=== PATIENT | female | born 1945 | race Caucasian/White ===

== ENCOUNTER 2017-05-06 17:45 | Emergency (ER) | payer OTHER ==
[~2017-05-06] VITALS: Ht 165.1 cm; Wt 95.3 kg
[~2017-05-06 17:45] MED LIST: LEVOTHYROXINE 0.15MG PO; LISINOPRIL10 MG PO; MOBIC7.5 MG PO; PREDNISONE 20 M20 MG PO
[2017-05-06] MEDS ORDERED: AMBIEN 5 MG TABL5 M1 PO (17:58)
[2017-05-06] MEDS ORDERED: FORTAMET500 MG PO (17:58)
[2017-05-06] MEDS ORDERED: CALCIUM 600 +1 EAC1 PO (17:58)
[2017-05-06] MEDS ORDERED: ASPIR 8181 MG PO (17:58)
[2017-05-06] MEDS ORDERED: ZOCOR20 MG PO (17:58)
[2017-05-06] MEDS ORDERED: SERTRALINE HCL50 MG PO (17:58)
[2017-05-06] MEDS ORDERED: FOSAMAX 70 MG T70 MG PO (17:58)
[2017-05-06] MEDS ORDERED: REQUIP0.5 MG PO (17:59)
[2017-05-06] MEDS ORDERED: LOSARTAN-HCTZ1 EAC2 PO (17:59)
[2017-05-06 18:14] LABS: ABSOLUTE BASOPHILS 0.1 thou/uL (0.0-0.2); ABSOLUTE EOSINOPHILS 0.1 thou/uL (0.0-0.7); ABSOLUTE LYMPHOCYTES 2.7 thou/uL (0.8-5.3); ABSOLUTE MONOCYTES 0.7 thou/uL (0.0-1.2); ABSOLUTE NEUTROPHILS 4.4 thou/uL (1.6-8.1); BASOPHILS 0.7 %; EOSINOPHILS 1.3 %; HEMATOCRIT 37.4 % (37.0-47.0); HEMOGLOBIN 12.5 gm/dL (12.0-15.0); LYMPHOCYTES 33.6 %; MCH 27.8 pg (26.0-34.0); MCHC 33.4 g/dL (28.0-37.0); MCV 83.1 fL (80.0-100.0); MONOCYTES 8.6 %; MPV 8.9 fl. (7.2-11.1); NUCLEATED RBCS 0 /100WBC; PLATELET COUNT* 241 thou/uL (150-400); POLYS 55.8 %; RBC 4.51 mil/uL (4.20-5.00); RDW-CV 14.6 % (10.5-14.5); WBC 7.9 thou/uL (4.0-11.0)
[2017-05-06 18:19] LABS: ANION GAP 10 mmol/L (7-16); BUN 27 mg/dL (7-18); CALCIUM 9.3 mg/dL (8.5-10.1); CHLORIDE 102 mmol/L (98-107); CO2 28 mmol/L (21-32); CREATININE 1.1 mg/dL (0.6-1.3); GLUCOSE 132 mg/dL (70-99); POTASSIUM 3.5 mmol/L (3.5-5.1); SODIUM 140 mmol/L (136-145)
[2017-05-06 18:21] LABS: APTT 27.1 Seconds (25.0-31.3); PROTIME 9.9 Seconds (9.20-11.50)
[2017-05-06 18:29] LABS: INFLUENZA A ANTIGEN None Detected (None Detect); INFLUENZA B ANTIGEN None Detected (None Detect)
[2017-05-06 18:38] LABS: ALBUMIN 3.8 g/dL (3.4-5.0); ALKALINE PHOSPHATASE 71 U/L (46-116); CK-MB MASS < 0.5 ng/mL (<0.5-3.6); LIPASE 130 U/L (73-393); MAGNESIUM 1.5 mg/dL (1.8-2.4); NT-PRO BRAIN NAT PEPTIDE 135 pg/mL (<300); SGOT 20 U/L (15-37); SGPT 24 U/L (30-65); TOTAL BILIRUBIN 0.4 mg/dL (<0.1-1.0); TOTAL PROTEIN 8.2 g/dL (6.4-8.2); TROPONIN-I LEVEL <0.06 ng/mL (<0.06)
[2017-05-06] MEDS ORDERED: OSELB75 PO (18:43)
[2017-05-06] MEDS ORDERED: PROMETH-CODEIN 65 ML PO (18:53)
[2017-05-06 18:58] VITALS: BP 124/82
--- NOTE | 2017-05-07 11:23 | EKG ---
[place] [address] ELECTROCARDIOGRAM REPORT Name: BAYLEE LEE Room: [facility]#: [id number] Admission: 05/06/17 Attend Phys: Discharge: 05/06/17 Date of : 41 Report #: [id number] THIS REPORT FOR: //name// [facility] ED Test Date: 2017-05-06 Test Time: 17:56:11 Pat Name: BAYLEE LEE Department: Room: Gender: F [employer] Manager: : 1945 Requested By: Harrison Blanchard Order Number: [id number] MD: Da Mei Measurements Intervals Buena Rate: 141 P: 176 WV: 63 QRS: -15 QRSD: 85 T: 42 QT: 323 QTc: 495 Interpretive Statements Sinus or ectopic atrial tachycardia nonspecific st changes No previous ECG available for comparison Electronically Signed On 05-07-2017 11:23:25 HEALTH SUPPORT SPECIALIST by Da Mei [email or web address] <ELECTRONICALLY SIGNED> By: Da Mei MD, [facility] 05/07/17 1123 1756 1756 Da Mei MD, FACC /EPI
== END 2017-05-06 18:59 | disposition home or self-care (01) ==
LOC: M.ERS 17:45
PROVIDERS: Family Medicine
DX: B34.9 Viral infection, unspecified (principal); I10 Essential (primary) hypertension; E11.9 Type 2 diabetes mellitus without complications; Z88.0 Allergy status to penicillin; E07.9 Disorder of thyroid, unspecified

== ENCOUNTER → 2019-10-01 | Outpatient (CLI) | payer OTHER ==
[~2019-10-01] MED LIST changes: +AMBIEN 5 MG TABL5 M1 PO; +ASPIR 8181 MG PO; +CALCIUM 600 +1 EAC1 PO; +FORTAMET500 MG PO; +FOSAMAX 70 MG T70 MG PO; +LOSARTAN-HCTZ1 EAC2 PO; +OSELB75 PO; +PROMETH-CODEIN 65 ML PO; +REQUIP0.5 MG PO; +SERTRALINE HCL50 MG PO; +ZOCOR20 MG PO
== END ==
LOC: M.MRI 09-28 14:30
DX: S83.281A Other tear of lateral meniscus, current injury, right knee, initial encounter (principal); G89.29 Other chronic pain; X58.XXXA Exposure to other specified factors, initial encounter; Y93.89 Activity, other specified; Y92.89 Other specified places as the place of occurrence of the external cause; Y99.8 Other external cause status

== ENCOUNTER 2019-10-20 08:55 | Inpatient (IN) | payer OTHER ==
[~2019-10-20] VITALS: Ht 165.1 cm; Wt 93.0 kg
[~2019-10-20 08:55] MED LIST changes: +GLUMETZA1000 PO; +LEVOXYL125 MCG PO; +REQUIP 1 MG TABL1 M1 PO; -REQUIP0.5 MG PO; +SIMVASTATIN40 MG PO; +ULTRAM 50MG TAB50 MG PO; +ZOLPIDEM TARTRA10 MG PO
[2019-10-20 09:31] LABS: URINE BILIRUBIN NEGATIVE (Negative); URINE BLOOD NEGATIVE (Negative); URINE CLARITY CLEAR; URINE COLOR YELLOW; URINE GLUCOSE-RANDOM NEGATIVE (Negative); URINE KETONES NEGATIVE (Negative); URINE LEUKOCYTES-REFLEX 1+ (Negative); URINE NITRITE-REFLEX NEGATIVE (Negative); URINE PROTEIN NEGATIVE (Negative); URINE SPECIFIC GRAVITY >= 1.030 (1.005-1.030); URINE UROBILINOGEN 0.2 E.U./dl (0.2-1.0)
[2019-10-20 09:43] LABS: CASTS None Seen /LPF (None Seen); CRYSTALS None Seen /LPF (None Seen); MUCUS 4-6 Moderate strn/LPF (None Seen); SQUAMOUS 4-10 Moderate /LPF (0-3); URINE RBC 0-2 Rare /HPF (0-2); URINE WBC-REFLEX 6-15 Few /HPF (0-5)
[2019-10-20 10:40] LABS: HEMATOCRIT 36.6 % (37.0-47.0); HEMOGLOBIN 12.3 gm/dL (12.0-15.0); MCH 28.5 pg (26.0-34.0); MCHC 33.5 g/dL (28.0-37.0); MCV 85.1 fL (80.0-100.0); MPV 8.7 fl. (7.2-11.1); RBC 4.3 mil/uL (4.20-5.00); RDW-CV 14.4 % (10.5-14.5); WBC 10.9 thou/uL (4.0-11.0)
[2019-10-20 10:58] LABS: ALBUMIN 3.8 g/dL (3.4-5.0); CREATININE 0.9 mg/dL (0.6-1.3); POTASSIUM 3.9 mmol/L (3.5-5.1); TOTAL BILIRUBIN 0.5 mg/dL (<0.1-1.0); TOTAL PROTEIN 7.9 g/dL (6.4-8.2)
[2019-10-27 11:00] VITALS: BP 146/69
[2019-10-27 17:15] VITALS: BP 116/61
[2019-10-27 20:00] VITALS: BP 125/62
[2019-10-27 23:29] VITALS: BP 132/68
[2019-10-28 04:00] VITALS: BP 125/71
[2019-10-28 04:41] LABS: HEMATOCRIT 29.9 % (37.0-47.0)
[2019-10-28 07:35] VITALS: BP 146/75
[2019-10-28 20:30] VITALS: BP 113/46
[2019-10-29 04:14] LABS: HEMATOCRIT 28.3 % (37.0-47.0); HEMOGLOBIN 9.5 gm/dL (12.0-15.0)
[2019-10-29 08:00] VITALS: BP 126/61
[2019-10-29 13:45] VITALS: BP 126/61
[2019-10-29 21:00] VITALS: BP 154/67
[2019-10-30 08:00] VITALS: BP 141/69
[2019-10-30 08:41] VITALS: BP 141/69
[2019-10-30] MEDS ORDERED: XARELTO10 MG PO (11:54)
[2019-10-30] MEDS ORDERED: PERCOCET 5-3251 EACH PO (11:54)
--- NOTE | 2019-11-03 08:58 | OP ---
[address] [address] OPERATIVE REPORT Name: BAYLEE LEE Room: [address] IN [facility]#: [id number] Admission: 10/27/19 Attend Phys: Kirsten Elias Discharge: 10/30/19 Date of : 41 Report #: [id number] THIS REPORT FOR: //name// cc: Jasmyne Malhotra Mohammad K. DO ~ THIS REPORT FOR: //name// CC: Jasmyne Birmingham DATE OF SERVICE: 10/27/2019 PREOPERATIVE DIAGNOSIS: Right knee osteoarthritis. POSTOPERATIVE DIAGNOSIS: Right knee osteoarthritis. PROCEDURE: Right total knee arthroplasty. SURGEON: Andrés España II, DO. TOP LIFT AND AUTOMATIC WINDOW REPAIRER: ZAC Carney. ANESTHESIA: General endotracheal. ESTIMATED BLOOD LOSS: 50 mL. ANTIBIOTICS: Ancef preoperatively. DRAINS: Medium Hemovac. COMPLICATIONS: None. CONDITION OF THE PATIENT: Stable to recovery room. IMPLANTS: Listed in operative record and progress note. BRIEF HISTORY: The patient is seen in the preoperative area. Preoperative H and P was performed. Site was marked, questions were answered. Risks and benefits were discussed with the patient in detail about surgery. The patient wished to proceed, assuming all risks. DESCRIPTION OF PROCEDURE: The patient was taken to the operative suite and placed supine on the operative table, given appropriate anesthesia. A well-padded tourniquet was applied to upper thigh, which was inflated to 300 mmHg after gravity exsanguination. The operative knee was sterilely prepped and [facility] [address] [place] [address] OPERATIVE REPORT Name: ROSABAYLEE Sharif Room: [address] IN [facility].#: [id number] Admission: 10/27/19 Attend Phys: Kirsten Elias Discharge: 10/30/19 Date of : 41 Report #: [id number] draped. Surgery began by midline incision. This was carried down to the subcutaneous tissues. A medial parapatellar arthrotomy was performed and carried down to bone. Patella was then everted and excess soft tissue removed from around the femur. Femoral cutting block was then applied, checked with drop josie for rotational alignment, pinned in appropriate position and appropriate cuts were made. A 4-in-1 cutting block was then applied, checked for rotational alignment, pinned in appropriate position and appropriate cuts were made. The tibia was then exposed, excess meniscus was removed. Retractors were placed along the collateral ligaments. The tibial cutting block was then applied, pinned in appropriate position, checked with drop josie for rotational alignment and slope and appropriate cut was made. Tibial bone was removed. Tibial base plate was then applied, checked for rotational alignment with the drop josie and pinned in appropriate position. The femur was then applied and box cut was reamed. This was then trialed with appropriate spacer, which showed excellent fit and fill and excellent stability through all range of motion. The patella was reamed in appropriate fashion and sized to appropriate size. Three peg holes were drilled. Knee was then trialed and showed excellent flexion, extension, excellent tracking of the patella within the groove. These trials were then removed. The tibia was punched in appropriate fashion. Bone ends were cleansed with Pulsavac irrigation and cement was mixed and applied to final implants. These were then malleted into position and held the knee in extension and compressed to allow cement to cure. After it cured, excess was removed utilizing [place] and osteotome. Wound was then copiously irrigated and the final spacer was then malleted into position. The tourniquet was deflated. Hemostasis was maintained with electrocautery. Pain cocktail was injected. Thrombin spray was also sprayed throughout the internal aspects of the knee to help assist with hemostasis. Medium Hemovac drain was applied. Capsule was closed with #2 FiberWire and #1 Vicryl in [id number] fashion. Skin was closed with 2-0 Vicryl and running 3-0 Monocryl. Dermabond and sterile dressing applied. Efren wrap and PolarCare applied. The patient transported to recovery room in stable condition. Counts were correct throughout the procedure. <ELECTRONICALLY SIGNED> By: Andrés España II, DO 11/03/19 0858 2248 [id number] España II, DO /nt
== END 2019-10-30 14:16 | disposition home health service (06) | DRG 470 ==
LOC: M.PRE 08:55 → M.TBA 10-27 10:37 → M.ORTHSURG 10-27 10:37 → M.PRE 10-27 11:01 → M.ORTHSURG 10-27 17:17
PROVIDERS: Orthopaedic Surgery; ADMIT Internal Medicine; ATTEND Internal Medicine
PROC: 0SRC0J9 Replacement of Right Knee Joint with Synthetic Substitute, Cemented, Open Approach (ICD-10-PCS; principal; 2019-10-27)
DX: M17.11 Unilateral primary osteoarthritis, right knee (principal); D62 Acute posthemorrhagic anemia; I10 Essential (primary) hypertension; M81.0 Age-related osteoporosis without current pathological fracture; E11.9 Type 2 diabetes mellitus without complications; E03.9 Hypothyroidism, unspecified; E66.9 Obesity, unspecified; F32.9 Major depressive disorder, single episode, unspecified; K21.9 Gastro-esophageal reflux disease without esophagitis; Z88.0 Allergy status to penicillin; Z68.34 Body mass index [BMI] 34.0-34.9, adult; Z79.899 Other long term (current) drug therapy

== ENCOUNTER 2020-04-17 13:37 | Inpatient (IN) | payer OTHER ==
[~2020-04-17] VITALS: Ht 165.1 cm; Wt 95.3 kg
[~2020-04-17 13:37] MED LIST changes: +PERCOCET 5-3251 EACH PO; +XARELTO10 MG PO
[2020-04-17 13:46] VITALS: BP 166/88
[2020-04-17] MEDS ORDERED: NORCO 5-325 TA1 EAC2 PO (13:51)
[2020-04-17 14:52] LABS: ABSOLUTE BASOPHILS 0.1 thou/uL (0.0-0.2); ABSOLUTE EOSINOPHILS 0.4 thou/uL (0.0-0.7); ABSOLUTE LYMPHOCYTES 1.5 thou/uL (0.8-5.3); ABSOLUTE MONOCYTES 0.8 thou/uL (0.0-1.2); ABSOLUTE NEUTROPHILS 9.9 thou/uL (1.6-8.1); BASOPHILS 0.4 %; EOSINOPHILS 3.3 %; HEMATOCRIT 32.5 % (37.0-47.0); HEMOGLOBIN 10.6 gm/dL (12.0-15.0); LYMPHOCYTES 11.9 %; MCH 26.5 pg (26.0-34.0); MCHC 32.4 g/dL (28.0-37.0); MCV 81.6 fL (80.0-100.0); MONOCYTES 6.5 %; MPV 7.9 fl. (7.2-11.1); NUCLEATED RBCS 0 /100WBC; PLATELET COUNT* 434 thou/uL (150-400); POLYS 77.9 %; RBC 3.98 mil/uL (4.20-5.00); WBC 12.7 thou/uL (4.0-11.0)
[2020-04-17 15:02] LABS: CALCIUM 9.3 mg/dL (8.5-10.1); CREATININE 1.3 mg/dL (0.6-1.3); POTASSIUM 3.8 mmol/L (3.5-5.1)
[2020-04-17 15:12] LABS: ALBUMIN 3.2 g/dL (3.4-5.0); MAGNESIUM 1.8 mg/dL (1.8-2.4); TOTAL BILIRUBIN 1.2 mg/dL (<0.1-1.0)
[2020-04-17 16:08] LABS: URINE BILIRUBIN NEGATIVE (Negative); URINE BLOOD NEGATIVE (Negative); URINE CLARITY HAZY; URINE COLOR YELLOW; URINE GLUCOSE-RANDOM NEGATIVE (Negative); URINE KETONES TRACE (Negative); URINE LEUKOCYTES-REFLEX TRACE (Negative); URINE NITRITE-REFLEX NEGATIVE (Negative); URINE PROTEIN NEGATIVE (Negative); URINE SPECIFIC GRAVITY 1.025 (1.005-1.030)
[2020-04-17 16:15] LABS: SQUAMOUS >10 Many /LPF (0-3)
[2020-04-17 16:17] LABS: BACTERIA-REFLEX None Seen /HPF (None Seen); CASTS None Seen /LPF (None Seen); CRYSTALS None Seen /LPF (None Seen); MUCUS 0-3 Light strn/LPF (None Seen); URINE RBC None Seen /HPF (0-2); URINE WBC-REFLEX 0-5 Rare /HPF (0-5)
[2020-04-17 16:46] VITALS: BP 154/76
[2020-04-17 17:20] VITALS: BP 180/82
--- NOTE | 2020-04-17 18:08 | NUR ---
THIS NURSE AGREES WITH ASSESSMENT BY ROSEANN JOHNS
--- NOTE | 2020-04-17 18:59 | NUR ---
PT ALERT AND ORIENTED X 4. PT VISITING WITH FAMILY AT THIS TIME. PT TOLERATED FOOD. FLUIDS INFUSING VIA RIGHT FOREARM IV. CALL LIGHT WITHIN REACH. FALL PRECAUTIONS REMAIN IN PLACE. WILL CONTINUE TO MONITOR.
[2020-04-17 19:36] VITALS: BP 149/79
--- NOTE | 2020-04-18 03:24 | NUR ---
PATIENT HAS REMAINED ALERT AND ORIENTED X 4 THROUGHOUT THE SHIFT. MAX ASSIST OF TWO TO MOVE PATIENT TO EDGE OF BED. ONCE UP, MIN/CGA TO AMBULATE. BRACE/SHOULDER IMMOBILZER LUE. VITAL SIGNS STABLE. HOME MEDS RESUMED. SLEEPING MED AND PAIN MED AT HS PER PATIENT REQUEST. PATIENT REPORTED NO BM X 9 DAYS. ORDER FOR MIRALAX RECEIVED AND PROVIDED. ORTHO CONSULT THE AM. CONTINUE TO MONITOR.
--- NOTE | 2020-04-18 06:39 | NUR ---
ORTHO/DR. SHRESTHA HERE TO EVALULATE PATIENT. DISCUSSED RING ON LEFT HAND THAT IS TIGHT DUE TO EDEMA. DR ADDRESSED SITE. STATED CAN KEEP HAND ELEVATED AND ICE. RING DOES NOT NEED TO BE CUT OFF AT THIS TIME. CONTINUE TO MONITOR.
[2020-04-18 09:23] VITALS: BP 129/65
--- NOTE | 2020-04-18 13:26 | NUR ---
CM SPOKE TO THE PT TO DISCUSS CM ASSESSMENT. PT A&O, AND INDEPENDENT WITH ADL'S. PT RESIDES AT HOME ALONE, AND HER SON CHECKS IN ON HER DAILY. PT OWNS A WALKER, BUT DID NOT USE IT PRIOR TO ADMIT. PT HAS HX OF HH WITH [facility]. PT HAS 0 HX OF SNF. PT HAS HX OF OUTPATIENT PHYSICIAL THERAPY AFTER KNEE SX. CM SPOKE TO PT TO DISCUSS D/C PLANNING. PT INFORMS THAT SHE WOULD LIKE ARU HERE AT [facility] FOR THERPIES HER SON WORKS HERE. PT INFORMED THAT IF ARU DECLINES THEN THE ALTERNATE OPTION WOULD BE SNF. PHYSICIAN PLACED ARU CONSULT AND PT/OT ORDERED. CM WILL REMAIN AVAILABLE TO ASSIST AND FOLLOW NEEDED.
--- NOTE | 2020-04-18 14:10 | EKG ---
[place] [address] ELECTROCARDIOGRAM REPORT Name: BAYLEE LEE Room: [address] ADM IN [facility]#: [id number] Admission: 04/18/20 Attend Phys: Ray Malik Discharge: Date of : 41 Date of Service: 04/17/20 1633 Report #: [id number] THIS REPORT FOR: //name// [facility] ED Test Date: 2020-04-17 Test Time: 16:33:37 Pat Name: BAYLEE LEE Department: Room: [address] Gender: F Clay Worker: RANGEL : 1945 Requested By: Ray Sam Order Number: [id number] Jonathan MD: Da Mei Measurements Intervals Mcgregor Rate: 97 P: 52 DC: 197 QRS: -9 QRSD: 93 T: 36 QT: 364 QTc: 463 Interpretive Statements Sinus rhythm Probable left atrial enlargement Abnormal R-wave progression, early transition Inferior infarct, old Compared to ECG 05/06/2017 17:56:[address] (T wave) deviation no longer present Electronically Signed On 04-18-2020 14:10:38 MANAGER PROFESSIONAL DEVELOPMENT by Da Mei [email or web address] <ELECTRONICALLY SIGNED> By: Da Mei MD, FACC 04/18/20 1410 1633 1633 Da Mei MD, FACC /EPI
--- NOTE | 2020-04-18 16:31 | NUR ---
PT A&Ox4. VITALS STABLE. IV PATENT, INFUSING. BRACE IN PLACE ON LEFT ARM. TOLERATING DIET. TOLERATING PAIN. EATING WELL. UP WITH 1 MIN ASSIST. PENDING REHAB CONSULT. FALL PRECAUTIONS IN PLACE. CALL LIGHT WITHIN REACH. WILL CONTINUE TO MONITOR.
[2020-04-18 16:38] VITALS: BP 149/77
[2020-04-18 19:45] VITALS: BP 155/70
--- NOTE | 2020-04-19 04:50 | NUR ---
PT A&O X 4, FORGETFUL AT TIMES. ON RA. MEDS GIVEN ORDERED. C/O PAIN WITH MOVEMENT, BUT PT SAID "IT WAS BEARABLE". UP TO THE BR WITH MODERATE ASSIST. HAD BM THIS SHIFT. PT SLEPT MOST OF THE NIGHT. LUE SWOLLEN AND ELEVATED ON PILLOW. BRACE IN PALCE. CALL LIGHT WITHIN REACH. WILL CONTINUE TO MONITOR.
[2020-04-19 05:32] LABS: HEMATOCRIT 26.9 % (37.0-47.0); HEMOGLOBIN 8.9 gm/dL (12.0-15.0); MCH 26.9 pg (26.0-34.0); MCHC 33.1 g/dL (28.0-37.0); MCV 81.3 fL (80.0-100.0); MPV 8.2 fl. (7.2-11.1); RBC 3.31 mil/uL (4.20-5.00); RDW-CV 17.1 % (10.5-14.5); WBC 11.3 thou/uL (4.0-11.0)
[2020-04-19 05:51] LABS: CALCIUM 9.3 mg/dL (8.5-10.1); CREATININE 0.9 mg/dL (0.6-1.3)
[2020-04-19 07:48] VITALS: BP 145/72
--- NOTE | 2020-04-19 08:26 | NUR ---
RECEIVED AND READ BACK TELEPHONE ORDER FROM DR. INGRAM FOR 4MG ZOFRAN IV Q4PRN FOR PATIENT FOR N/V.
[2020-04-19 16:21] VITALS: BP 123/71
--- NOTE | 2020-04-19 16:30 | NUR ---
SPOKE WITH PT.ABOUT DISCHARGE PLANNING. SHE AGREES TO SNF. EXPLAINED DIFFERNES BETWEEN SNF AND ACUTE REHAB. SHE SAID SHE DID NOT WANT OR THINK SHE DO IT. GAVE HER A LIST OF CONTRACTED FACILITIES WITH HER INSURANCE. SHE WOULD LIKE TO GO TO [facility] BUT THEY ARE NOT ON THE LIST. CM WILL MAKE REFERRAL IN AM TO [facility].
--- NOTE | 2020-04-19 18:49 | NUR ---
PATIENT CURRENTLY LYING IN BED RESTING, LUE SLING/BRACE IN PLACE. "KARMA" FROM [facility] CONTACTED THIS NURSE TODAY TO INFORM THAT HE WILL BE AT FACILITY 04/20 OR 04/21 TO RETIEVE BRACE SO HE MAY "SAND DOWN" THE ROUGH EDGES THAT ARE IRRITATING PATIENT'S ARM, WHICH IS CURRENTLY PROTECTED WITH BORDER FOAM UNDERNEATH. PATIENT DENIES PAIN/NEEDS AT THIS TIME. CALL LIGHT AND FREQUENTLY USED ITEMS WITHIN REACH.
[2020-04-19 20:15] VITALS: BP 121/72
[2020-04-20 06:27] LABS: HEMATOCRIT 28.4 % (37.0-47.0); HEMOGLOBIN 9.2 gm/dL (12.0-15.0); MCH 26.6 pg (26.0-34.0); MCHC 32.5 g/dL (28.0-37.0); MPV 7.6 fl. (7.2-11.1); RBC 3.46 mil/uL (4.20-5.00); RDW-CV 17.2 % (10.5-14.5); WBC 12.7 thou/uL (4.0-11.0)
[2020-04-20 07:06] LABS: CALCIUM 8.8 mg/dL (8.5-10.1); MAGNESIUM 1.6 mg/dL (1.8-2.4); POTASSIUM 4.3 mmol/L (3.5-5.1)
--- NOTE | 2020-04-20 07:07 | NUR ---
PT SLEPT WELL OVERNIGHT. UP WITH ASSIST TO BR TO VOID. BRACE INTACT TO JEWEL. HAND PINK AND WARM,EDEMA TO FINGERS, ABLE TO MOVE RING-ELEVATED ON WEDGE. NWB TO LUE. HS ACCUCHECK 113. ROOM AIR SAT 96%. RECEIVED TRAMADOL AND AMBIEN AT HS. PT HOPEFUL FOR DISCHARGE TO SNF FOR REHAB THERAPIES. RAC IVF INFUSING PER PUMP. ABLE TO USE CALL LITE AND MAKE NEEDS KNOWN. BED ALARM ON FOR SAFETY.
[2020-04-20 07:40] VITALS: BP 145/71
[2020-04-20] MEDS ORDERED: SENNA PLUS TAB1 EACH PO (08:29)
[2020-04-20] MEDS ORDERED: SYNTHROID175 MCG PO (08:32)
--- NOTE | 2020-04-20 10:10 | NUR ---
FAXED REFERRAL TO [facility]. SPOKE WITH HER AT [phone].
--- NOTE | 2020-04-20 12:37 | NUR ---
THIS NURSE AGREES WITH MORNING ASSESSMENT BY ROSEANN JOHNS
--- NOTE | 2020-04-20 15:52 | NUR ---
AFTER SEEING PT. AT 1403, PK HAD NOT COME YET TO SOFTEN THE SHARP EDGES OF HER BRACE. OStanley. CALLED YESTERDAY AND APPLIED OPTIFOAM ON THE SHARP EDGES OF HER BRACE SO IT WOULDN'T MAKE HARD INDENTATIONS IN HER SKIN. Marcos EDUCATED PT. TO CALL PK TOMORROW IF SHE LEAVES FOR A REHAB FACILITY.
--- NOTE | 2020-04-20 16:00 | NUR ---
[facility] MISPLACED REFERRAL,THEN FOUND IT. THEY DO NOT FEEL THEY WILL HAVE BED AVAILABILITY BUT SENT REFERRAL ON TO [facility]. SHOULD BE ABLE TO ADMIT TOMMOROW. BRACE CO. TO ADJUST BRACE IN AM.
[2020-04-20 16:51] VITALS: BP 130/53
--- NOTE | 2020-04-20 18:20 | NUR ---
PT ALERT AND ORIENTED X 4. PT ON RA. PT GIVEN ZOFRAN FOR NAUSEA. DINNER AT BEDSIDE, BUT NOT READY TO EAT. METFORMIN HELD DUE TO NAUSEA AND NOT EATING AT THIS TIME. SON AT BEDSIDE. PT RESTING IN BED AT THIS TIME. CALL LIGHT WITHIN REACH.
[2020-04-20 20:00] VITALS: BP 141/62
--- NOTE | 2020-04-21 06:39 | NUR ---
ASSUMED PT'S CARE THIS PM SHIFT. ALERT AND ORIENTED. VSS ON RA. MEDS GIVEN PER EMAR. DENIES PAIN THIS SHIFT. UP X1 ASSIST TO BATHROOM. SLEPT WELL THIS SHIFT. ZOFRAN GIVEN FOR NAUSEA X2 THIS SHIFT. NO VOMITTING. FALL PRECAUTION IN PLACE. CALL LIGHT WITHIN REACH. HOURLY ROUNDINGS MADE. WILL CONTINUE TO MONITOR.
[2020-04-21 07:40] VITALS: BP 138/69
[2020-04-21 08:41] VITALS: BP 147/83
--- NOTE | 2020-04-21 09:37 | NUR ---
THIS NURSE AGREES WITH MORNING ASSESSMENT BY ROSEANN JOHNS
--- NOTE | 2020-04-21 10:10 | NUR ---
PT SITTING IN A CHAIR AT THIS TIME. STATES SHE RECEIVED A NEW SOCK FOR LEFT SHOULDER BRACE. ORTHO MANAGER TRANSFUSION IN TO ADJUST CAST. NO OTHER CONCERNS NOTED AT THIS TIME. PT STATES HER STOMACH IS MUCH BETTER AT THIS TIME.
--- NOTE | 2020-04-21 12:30 | NUR ---
[facility] CANNOT ACCEPT PT.DUE TO BED AVAILABILITY . [facility] CAN PER RONALDO AT [facility]. SHE HAD REVIEWED INFORMATION FAXED. PT.AGREEABLE TO GO TO [facility]. RONALDO WILL ARRANGE A WC VAN FOR 2-2:30. FAXED DISCHARGE ORDERS TO HER [phone]. CHART COPIED TO GO WITH PT. NURSE TO CALL REPORT. INFORMED PT. HER SON IS GOING TO BRING HER SOME SWEAT SHIRTS AND PANTS.
--- NOTE | 2020-04-21 14:19 | NUR ---
PT ALERT AND ORIENTED. TRANSPORTED VIA WHEELCHAIR VAN. REPORT CALLED TO EDGARDO BARCENAS. VSS.
--- NOTE | 2020-04-22 13:52 | CON ---
[address] [address] CONSULTATION Name: XAVI LEEIVETH Sharif Room: [address] IN [facility].#: [id number] Admission: 04/18/20 Attend Phys: Ray Sam, Discharge: 04/21/20 Date of : 41 Report #: [id number] THIS REPORT FOR: cc: Jasmyne Malhotra Mohammad K. DO ~ Amos Lozoya MD DATE OF SERVICE: 04/18/2020 HISTORY OF PRESENT ILLNESS: This is a 74-year-old female patient who was evaluated by me to determine any neurological etiology for the patient's fall. The patient had a fall in a restaurant and that appeared to be a mechanical fall and she broke her left shoulder. She went to [facility] where she was admitted. She tells me she did a CT and MRI on her and did not find any pathology. She is mainly having difficulty in turning now. She laid on the floor when she fell before her son came in. She said she did hit her head. She does not know whether any spine films was done on her or not, but she is pretty certain that an MRI of the brain was done. REVIEW OF SYSTEMS: A 14-point review of system was carried out. She is complaining of a lot of problem with the left shoulder. She does have a history of hypertension, diabetes, hypothyroidism, obesity, osteoporosis, heart murmur. This is all from the records. She thinks her memory is reasonable. This was a relevant 14-point review of system. PAST MEDICAL HISTORY: Positive for fall and she said she hit her head. Now, her mobility is impaired. FAMILY HISTORY: Unremarkable. SOCIAL HISTORY: She says she does not drink alcohol on a regular basis. PHYSICAL EXAMINATION: The patient's examinations indicate she is alert. She is responsive. She can tell me what month it is, but cannot tell me the exact date. She knew she was in [facility]. Overall, her memory looks somewhat poor. Cranial nerve examinations appear unremarkable. She moves her right upper extremity reasonably well. Left upper extremity she had a brace, difficult to evaluate, but she can move her hand. She moves all 4 extremities. Her position sense is intact. Reflexes are somewhat diminished, but she does have reasonable strength. [id number]-sq-[id number] she does have somewhat unusual fashion, but she does it. There is no papilledema. There is no carotid bruit. Cardiac examination is unremarkable. She is morbidly obese. She can hear things reasonably well. She has impaired vision in the right eye, but that is from the retinal artery occlusion, according to her. Her tone looks symmetrical. Her pulses are palpable. She has no edema, [place] [address] CONSULTATION Name: BAYLEE LEE Kole Room: [address]#: [id number] Admission: 04/18/20 Attend Phys: Ray Sam, Discharge: 04/21/20 Date of : 41 Report #: [id number] LABORATORY DATA: White count is 12.7. GFR is 40. She did have a carotid Doppler which was unremarkable. I do not see any CT or an MRI in this patient here. IMPRESSION: Pretty difficult to form in this patient. She is complaining of gait impairment with preserved strength. She tells me she hit her head. She did have workup from [facility]. I will get that workup, but I would like to repeat the CT in this patient to make sure there is no delayed contusion or any spine pathology. If she already had rest of the workup including MRI in [facility], I will not repeat that and she is markedly hypothyroid and that can be corrected and sometimes that can contribute to ataxia. Thank you very much for this referral and I discussed all of it with the patient in detail and I will follow this patient along with you. <ELECTRONICALLY SIGNED> By: Amos Lozoya MD 04/22/20 1352 20 38Amos Lozoya MD /nt
== END 2020-04-21 14:22 | DRG 184 ==
LOC: M.ERS 13:37 → M.3W 15:56 → M.TBA-ER 15:56 → M.3W 17:18
PROVIDERS: Personal Emergency Response Attendant; ADMIT Family Medicine; ATTEND Family Medicine
DX: S22.42XA Multiple fractures of ribs, left side, initial encounter for closed fracture (principal); S42.342A Displaced spiral fracture of shaft of humerus, left arm, initial encounter for closed fracture; J98.11 Atelectasis; E44.1 Mild protein-calorie malnutrition; Z20.828 Contact with and (suspected) exposure to other viral communicable diseases; I10 Essential (primary) hypertension; E11.9 Type 2 diabetes mellitus without complications; E03.9 Hypothyroidism, unspecified; M81.0 Age-related osteoporosis without current pathological fracture; K21.9 Gastro-esophageal reflux disease without esophagitis; F32.9 Major depressive disorder, single episode, unspecified; R53.81 Other malaise; E66.01 Morbid (severe) obesity due to excess calories; M17.11 Unilateral primary osteoarthritis, right knee; D64.9 Anemia, unspecified; R27.0 Ataxia, unspecified; G47.33 Obstructive sleep apnea (adult) (pediatric); Z68.34 Body mass index [BMI] 34.0-34.9, adult; Z88.0 Allergy status to penicillin; Z82.49 Family history of ischemic heart disease and other diseases of the circulatory system; W18.39XA Other fall on same level, initial encounter; Y93.89 Activity, other specified; Y92.89 Other specified places as the place of occurrence of the external cause; Y99.8 Other external cause status

== ENCOUNTER → 2020-09-20 | Outpatient (CLI) | payer OTHER ==
[~2020-09-20] MED LIST changes: +NORCO 5-325 TA1 EAC2 PO; +SENNA PLUS TAB1 EACH PO; +SYNTHROID175 MCG PO
== END ==
LOC: M.CT 10:38
DX: S42.412A Displaced simple supracondylar fracture without intercondylar fracture of left humerus, initial encounter for closed fracture (principal); X58.XXXA Exposure to other specified factors, initial encounter; Y92.89 Other specified places as the place of occurrence of the external cause; Y93.89 Activity, other specified; Y99.8 Other external cause status